=== PATIENT | female | born 1945 | race Caucasian/White ===

== ENCOUNTER 2022-07-21 13:45 | Outpatient (CLI) | payer MEDICARE, MEDICAID, SELFPAY ==
--- NOTE | 2022-07-21 14:06 | MR_ITS ---
WS: [id number] MRI BRAIN WITH HIGH-RESOLUTION IMAGING THROUGH THE INTERNAL AUDITORY CANALS WITHOUT AND WITH CONTRAST HISTORY: OTHER SPECIFIED DISEASES OF INNER EAR, UNSPECIFIED EAR, meningioma follow-up. Gamma knife kendall rgery 2014. COMPARISON: None available. TECHNIQUE: Multiplanar, multisequence imaging is performed through the brain. Additional 3 mm imaging performed in multiple planes through the internal auditory canal. Postcontrast imaging with 20 ml's of MultiHance. No acute intracranial hemorrhage, midline shift, edema or mass effect. No diffusion abnormality. Mild atrophy is symmetric. Mild small vessel ischemic disease. No prior inf arcts. Ventricles and extra-axial spaces are normal. No inferior displacement of cerebellar tonsils. Clivus and pituitary gland are normal. In the region of the LEFT cerebellopontine angle is a mass with a dural tail which is low signal on t he T1 sequences and demonstrates intense diffuse enhancement. Mass measures 11 x 5 mm and extends maxi ng the dura to the origin of the LEFT 7th and 8th cranial nerve complex. No additional signal abnorma lities or abnormal enhancement. Paranasal sinuses: Normal. Mastoid air cells: Normal. Calvarium and scalp: Normal. Visualized [place] and dural venous sinuses demonstrate no abnormality. MR/MR iac's wo/w con* [id number] IMPRESSION: 1. 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 No prior studies for comparison to document stability. 2. No additional masses or abnormality along the internal auditory canals.
[2022-07-21] MEDS: gadobenate dimeglumine 20 mL vial IV (15:31)
--- NOTE | 2022-07-21 15:45 | XR_ITS ---
WS: [id number] Exam: XR chest 2V* [id number] Date/Time of Exam: 07/21/2022 3:46 PM Reason For Exam: DISORDERS OF INNER EAR Comparison 10/06/2018. Lungs are clear and fully inflated. Heart size top limits normal. No pleural effusions. Regional bony elements are intact. The mediastinum is mildly prominent but unchanged in appearance. Regional bony structures are intact. XR/XR chest 2V* [id number] IMPRESSION: 1. No acute cardiopulmonary process noted.
== END 2022-07-21 13:46 | disposition home or self-care (01) ==
PROVIDERS: PCP Nurse Practitioner Family; Visit Provider Specialist
DX: H83.90 Unspecified disease of inner ear, unspecified ear (principal); R22.0 Localized swelling, mass and lump, head
CPT/HCPCS: 70553; 71046; A9577

== ENCOUNTER 2025-02-22 11:56 | Outpatient (RCR) | payer MEDICARE, SELFPAY | END 2025-02-23 23:59 | disposition home or self-care (01) | LOC: WPT 11:56 | PROVIDERS: Visit Provider General Practice | DX: M47.816 Spondylosis without myelopathy or radiculopathy, lumbar region (principal); Z96.659 Presence of unspecified artificial knee joint | CPT/HCPCS: 97110; 97162; 97530 ==

== ENCOUNTER 2025-03-15 10:53 | Outpatient (RCR) | payer MEDICARE, SELFPAY | END 2025-03-25 23:59 | disposition home or self-care (01) | LOC: WPT 10:53 | PROVIDERS: Visit Provider General Practice | DX: M47.816 Spondylosis without myelopathy or radiculopathy, lumbar region (principal); Z96.659 Presence of unspecified artificial knee joint | CPT/HCPCS: 97110; 97112; 97530 ==

== ENCOUNTER 2025-03-29 12:51 | Outpatient (RCR) | payer MEDICARE, SELFPAY | END 2025-04-25 23:59 | disposition home or self-care (01) | LOC: WPT 12:51 | PROVIDERS: PCP Nurse Practitioner Family; Visit Provider General Practice | DX: M47.816 Spondylosis without myelopathy or radiculopathy, lumbar region (principal); Z96.659 Presence of unspecified artificial knee joint | CPT/HCPCS: 97110; 97112; 97530 ==